=== PATIENT | male | born 1945 | race Caucasian/White ===

== ENCOUNTER → 2019-09-18 11:20 | Outpatient (CLI) | payer OTHER, SELFPAY ==
--- NOTE | ~2019-09-18 | US_ITS ---
EXAMINATION: US soft tissue upper back DATE: 09/18/2019 12:06 INDICATION: Left posterior superior thorax mass. TECHNIQUE: Multiple grayscale and Doppler ultrasound images of the left posterior superior thorax wer e obtained. COMPARISON: None FINDINGS: There is a 11.3 x 12.3 x 3.2 cm hypoechoic subcutaneous mass in the patient's area of shivam rn. The mass demonstrates echotexture similar to subcutaneous fat. IMPRESSION: 1. 12.3 cm subcutaneous mass in left posterior superior thorax, most likely a lipoma. Other benign or malignant masses could have the same appearance by ultrasound. Reviewed, dictated and finalized at location A. ND ETL DEVELOPER IMPRESSION: 1. 12.3 cm subcutaneous mass in left posterior superior thorax, most likely a l ipoma. Other benign or malignant masses could have the same appearance by ultra sound.
== END ==
PROVIDERS: PCP Family Medicine; Visit Provider Physician Assistant
DX: R22.2 Localized swelling, mass and lump, trunk (principal)
CPT/HCPCS: 76604

== ENCOUNTER 2020-01-12 00:29 | Outpatient (CLI) | payer OTHER, SELFPAY ==
[2020-01-12 18:39] LABS: SARS-CoV-2 RNA PCR Negative
== END 2020-01-12 00:30 | disposition home or self-care (01) ==
LOC: ANHCOVIDDT 00:29
PROVIDERS: PCP Family Medicine; Visit Provider Surgery Plastic and Reconstructive Surgery
DX: Z01.818 Encounter for other preprocedural examination (principal); Z11.59 Encounter for screening for other viral diseases; R22.2 Localized swelling, mass and lump, trunk
CPT/HCPCS: 87635; C9803; U0003

== ENCOUNTER 2020-01-12 11:24 | Outpatient (CLI) | payer OTHER, SELFPAY ==
--- NOTE | 2020-01-12 11:27 | ECG_ITS ---
Measurements Intervals [place] Rate: 67 P: [place]: 0 QRS: 52 QRSD: 104 T: 25 QT: 403 QTc: 427 Interpretive Statements ATRIAL FIBRILLATION BASELINE ARTIFACT- I, II, III, AVL, V3, V6 ABNORMAL ECG Electronically Signed On 01-12-2020 11:39:42 CDT by Zurdo Mobley D.O.
== END 2020-01-12 11:25 | disposition home or self-care (01) ==
LOC: ANHSURGERY 11:27
PROVIDERS: PCP Family Medicine; Visit Provider Surgery Plastic and Reconstructive Surgery
DX: I48.0 Paroxysmal atrial fibrillation (principal)
CPT/HCPCS: 87635; 93005; C9803; U0003

== ENCOUNTER 2020-01-14 00:58 | Day surgery (SDC) | payer OTHER, SELFPAY ==
[2020-01-11 12:23] VITALS: BMI 44.3
[2020-01-14] VITALS (7 sets, daily range): BP systolic 128–162; BP diastolic 66–87; PULSE 58–78; RESP 14–21; TEMP 36.2–36.7; O2SAT 97–100
[2020-01-14] MEDS: LACTATED RINGERS 1,000 ML 30 ML IV CONT (07:40)
--- NOTE | 2020-01-14 08:00 | WPDHPUPDATE1 ---
History and Physical Update Update Date/Time: 01/14/20 08:00 History and Physical has been reviewed, including an updated exam of the patient. There are NO changes in the patient's condition. Risks, benefits, and alternatives have been discussed and questions answered. Patient agrees to proceed with procedure.
--- NOTE | 2020-01-14 08:00 | PM.PROC ---
Procedure Note - Detailed Date of procedure: 01/14/20 Pre-op diagnosis: mass left upper back Post-op diagnosis: same Procedure performed: Excision mass left upper back 15cm Description of procedure: Patient was marked in the preoperative holding area with his verification. He was taken to the operating room placed on the operating room table. Anesthesia provided by anesthesiology and prepped and draped in a standard sterile fashion. Surgical time-out was taken. 1% lidocaine and 0.25% Marcaine with epinephrine was used anesthetize locally. A 15 blade used to make an incision over the mass. Dissection continued down to the it was completely removed and sent to pathology. I copiously irrigated with saline solution and verified strict hemostasis. I closed using 2-0 Vicryl deep followed by 3-0 Monocryl and running subcuticular 4-0 Monocryl and tissue glue. He was woken taken the PACU without difficulty. All instrument sponge counts were correct at the end of the case. Anesthesia: GLMA Surgeon: Robinson Garvey MD Estimated blood loss (mL): 3 Drains: No Packing: No Pathology: yes Complications: No immediate complications Condition: stable Disposition: PACU Findings: Poorly defined friable adipose tissue. Appears to be a lipoma.
--- NOTE | 2020-01-14 08:09 | WPDANESEPPF ---
Anes - Initial Pre Proc Eval Procedure: Operation Date: 01/14/20 08:30 Proposed Procedures p Excision Mass Left Upper Back - Robinson Garvey MD Date/Time: 01/14/20 08:09 Surgeon: Robinson Garvey MD Pre Op Diagnosis: mass left upper back Patient Data Age: 74 Gender: M Height: 1.75 m Weight: 138.6 kg Last Vital Signs Temp 36.7 C 01/14/20 06:30 Pulse 66 01/14/20 06:30 Resp 15 01/14/20 06:30 BP 128/83 01/14/20 06:30 Pulse Ox 98 01/14/20 06:30 Allergies Allergy/AdvReac Type Severity Reaction Status Date / Time No Known Allergies Allergy Verified 01/11/20 12:20 Home Medications Medication Instructions Recorded Confirmed Type rivaroxaban 20 mg tablet 20 mg PO DAILY 06/15/19 01/11/20 History Daily Multiple For Men 1 tab-cap PO DAILY 01/11/20 01/11/20 History docusate sodium [Dulcolax Stool 300 mg PO DAILY 01/11/20 01/11/20 History Softener (dss)] omega 1-xop-lpt-fish oil [Fish Oil] 1 cap PO DAILY 01/11/20 01/11/20 History atorvastatin 20 mg tablet 20 mg PO DAILY #90 tablet 01/13/20 01/14/20 Rx ECG: Date of Service: 01/12/20 Procedure(s): CA 12 lead EKG Accession Number(s): [id number] cc: ~ Measurements Intervals [place] Rate: 67 P: [place]: 0 QRS: 52 QRSD: 104 T: 25 QT: 403 QTc: 427 Interpretive Statements ATRIAL FIBRILLATION BASELINE ARTIFACT- I, II, III, AVL, V3, V6 ABNORMAL ECG Electronically Signed On 01-12-2020 11:39:42 CDT by Zurdo Mobley D.O. Dictated By: Zurdo Mobley DO 01/12/20 1154 Other Studies: normal stress test 2017 Patient hx anesthesia problems: none Family hx anesthesia problems: none PMFSH Past Medical History Medical History Bilateral cataracts Cardiovascular disease Chronic anticoagulation Diastolic dysfunction HTN (hypertension) Hyperlipidemia Hypertensive heart disease without heart failure Morbid (severe) obesity due to excess calories Neuropathy Neuropathy of both feet Osteoarthritis PAF (paroxysmal atrial fibrillation) Primary osteoarthritis, unspecified site Subcutaneous mass of back Surgical History Surgical History H/O cardiac radiofrequency ablation H/O cardiac radiofrequency ablation 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/2017 left knee 11/2017 Family History Family History Father Carcinoma of colon Mother Family history of renal cell carcinoma Social History Social History Smoking status: Never smoker Alcohol intake: current Gender identity (if verbalized by the patient): Male Anes - Eval Final PreProcedure Day of Procedure 01/14/20 08:09 Patient weight: morbidly obese Heart: regular rate and rhythm Lungs: clear to auscultation and normal air movement Airway: Mallampati scale class II Neurological: alert and oriented Last oral intake: >/= 8 hours ASA classification: III Emergent: no Anesthetic plan: proceed Anesthesia type and monitoring: general LMA and ETT Informed Consent: The patient's anesthetic plan and its attendant risks and benefits were discussed with the patient/family/POA. Questions were solicited and answers provided to the satisfaction of the patient/family/POA.
[2020-01-14] MEDS: ceFAZolin 3 GM/D5W 100 ML 100 ML IVPB (09:59)
[2020-01-14] MEDS: LIDO 1%/EPINEPHRINE 1:100,000 20 ML VIAL INFILTRATE (10:31)
--- NOTE | 2020-01-14 12:14 | SUR.PHASEII ---
1145 updated daughter on father conditon and possible hand picker time
== END 2020-01-14 12:35 | disposition home or self-care (01) ==
PROVIDERS: PCP Family Medicine; Visit Provider Surgery Plastic and Reconstructive Surgery
PROC: (CPT 21931; principal; 2020-01-14 08:30)
DX: D17.1 Benign lipomatous neoplasm of skin and subcutaneous tissue of trunk (principal); I48.0 Paroxysmal atrial fibrillation; I11.0 Hypertensive heart disease with heart failure; I50.30 Unspecified diastolic (congestive) heart failure; E78.5 Hyperlipidemia, unspecified; G62.9 Polyneuropathy, unspecified; M19.90 Unspecified osteoarthritis, unspecified site; Z79.01 Long term (current) use of anticoagulants; E66.01 Morbid (severe) obesity due to excess calories; Z68.41 Body mass index [BMI] 40.0-44.9, adult
CPT/HCPCS: 21931; 87635; 88304; 93005; C9803; J0330; J0690; J1100; J2250; J2405; J2704; J3010; J7120; U0003

== ENCOUNTER → 2020-09-24 01:07 | Outpatient (CLI) | payer OTHER, SELFPAY ==
[2020-09-24 19:49] LABS: SARS-CoV-2 RNA PCR Negative
== END ==
PROVIDERS: PCP Family Medicine; Visit Provider Internal Medicine Gastroenterology
DX: Z01.812 Encounter for preprocedural laboratory examination (principal); Z20.822 Contact with and (suspected) exposure to COVID-19
CPT/HCPCS: C9803; U0003; U0005

== ENCOUNTER 2020-09-28 01:11 | Day surgery (SDC) | payer OTHER, SELFPAY ==
[2020-09-14 14:49] VITALS: BMI 43.3
[2020-09-28 10:14] VITALS: BP 153/78; PULSE 76; RESP 18; TEMP 36.2; O2SAT 97; BMI 44.6
[2020-09-28] MEDS: LACTATED RINGERS 1,000 ML 150 ML IV CONT (10:30)
--- NOTE | 2020-09-28 10:39 | WPDANESEPPF ---
Anes - Initial Pre Proc Eval Procedure: Operation Date: 09/28/20 11:00 Proposed Procedures p Esophagogastroduodenoscopy - Magdiel Johnston MD Date/Time: 09/28/20 10:39 Surgeon: Magdiel Johnston MD Pre Op Diagnosis: dysphagia Patient Data Age: 75 Gender: M Height: 5 ft 10 in Weight: 141.3 kg Last Vital Signs Temp 36.2 C L 09/28/20 10:14 Pulse 76 09/28/20 10:14 Resp 18 09/28/20 10:14 BP 153/78 H 09/28/20 10:14 Pulse Ox 97 09/28/20 10:14 Allergies Allergy/AdvReac Type Severity Reaction Status Date / Time No Known Allergies Allergy Verified 09/28/20 10:09 Home Medications Medication Instructions Recorded Confirmed Type Daily Multiple For Men 1 tab-cap PO DAILY 01/11/20 09/14/20 History docusate sodium [Dulcolax Stool 300 mg PO DAILY 01/11/20 09/14/20 History Softener (dss)] omega 9-isx-bfw-fish oil [Fish Oil] 1 cap PO DAILY 01/11/20 09/14/20 History atorvastatin 20 mg tablet 20 mg PO DAILY #90 tablet 07/04/20 09/14/20 Rx rivaroxaban 20 mg tablet See Rx Instructions .ROUTE 07/27/20 09/28/20 Rx .COMPLEX #90 tablet Patient hx anesthesia problems: none Family hx anesthesia problems: none PMFSH Past Medical History Medical History Bilateral cataracts Cardiovascular disease Chronic anticoagulation Diastolic dysfunction HTN (hypertension) Hyperlipidemia Hypertensive heart disease without heart failure Morbid (severe) obesity due to excess calories Neuropathy Neuropathy of both feet Osteoarthritis PAF (paroxysmal atrial fibrillation) Paroxysmal A-fib Primary osteoarthritis, unspecified site Subcutaneous mass of back Surgical History Surgical History H/O cardiac radiofrequency ablation H/O cardiac radiofrequency ablation 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/2017 left knee 11/2017 Family History Family History Father Carcinoma of colon Mother Family history of renal cell carcinoma Social History Social History Smoking status: Never smoker Alcohol intake: current Substance use: never Substance use type: does not use Living arrangements: alone Gender identity (if verbalized by the patient): Male Sexual Orientation (if Verbalized by the Patient): Straight or Heterosexual Spiritual care concerns: No Anes - Eval Final PreProcedure Day of Procedure 09/28/20 10:39 Patient weight: morbidly obese Heart: regular rate and rhythm Lungs: clear to auscultation Airway: Mallampati scale class II Neurological: alert and oriented Last oral intake: >/= 8 hours ASA classification: III Emergent: no Anesthetic plan: proceed Anesthesia type and monitoring: general GIVS and standard monitoring Informed Consent: The patient's anesthetic plan and its attendant risks and benefits were discussed with the patient/family/POA. Questions were solicited and answers provided to the satisfaction of the patient/family/POA.
--- NOTE | 2020-09-28 11:12 | PM.HPGS ---
History of Present Illness History of Present Illness Consent: Risks, benefits, and alternatives have been discussed and questions answered. Patient agrees to proceed with procedure. Chief complaint: dysphagia Narrative: Marty Diaz is a 75 year old male with intermittent dysphagia to both solids and liquids (sometimes getting stuck in throat), he is not taking ppi. First EGD. Review of Systems Constitutional: Constitutional: Denies headache(s) and Denies weakness Eyes: Eyes: Denies blurry vision ENT: Reports Normal hearing present, Denies headache(s) and Denies neck pain Cardiovascular: Cardiovascular: Denies chest pain and Denies dyspnea Respiratory: Respiratory: Denies dyspnea Gastrointestinal: Gastrointestinal: Reports no additional gastrointestinal complaints Genitourinary: Genitourinary: Denies dysuria Musculoskeletal: Musculoskeletal: Denies neck pain Integumentary/Breasts: Skin/Breast: Denies dry skin Neurologic: Reports Normal hearing present, Denies headache(s) and Denies weakness Psychiatric: Psychiatric: Denies anxiety Endocrine: Endocrine: Denies change in body appearance Hematologic/Lymphatic: Hematologic/Lymphatic: Denies easy bleeding Allergic/Immunologic: Allergic/Immunologic: Denies urticaria PMFSH Past Medical History Medical History Bilateral cataracts Cardiovascular disease Chronic anticoagulation Diastolic dysfunction HTN (hypertension) Hyperlipidemia Hypertensive heart disease without heart failure Morbid (severe) obesity due to excess calories Neuropathy Neuropathy of both feet Osteoarthritis PAF (paroxysmal atrial fibrillation) Paroxysmal A-fib Primary osteoarthritis, unspecified site Subcutaneous mass of back Surgical History Surgical History H/O cardiac radiofrequency ablation H/O cardiac radiofrequency ablation 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/2017 left knee 11/2017 Family History Family History Father Carcinoma of colon Mother Family history of renal cell carcinoma Social History Social History Smoking status: Never smoker Alcohol intake: current Substance use: never Substance use type: does not use Living arrangements: alone Gender identity (if verbalized by the patient): Male Sexual Orientation (if Verbalized by the Patient): Straight or Heterosexual Spiritual care concerns: No Meds Home Medications and Allergies Home Medications Medication Instructions Recorded Confirmed Type Daily Multiple For Men 1 tab-cap PO DAILY 01/11/20 09/14/20 History docusate sodium [Dulcolax Stool 300 mg PO DAILY 01/11/20 09/14/20 History Softener (dss)] omega 8-nqa-jaw-fish oil [Fish Oil] 1 cap PO DAILY 01/11/20 09/14/20 History atorvastatin 20 mg tablet 20 mg PO DAILY #90 tablet 07/04/20 09/14/20 Rx rivaroxaban 20 mg tablet See Rx Instructions .ROUTE 07/27/20 09/28/20 Rx .COMPLEX #90 tablet Allergies Allergy/AdvReac Type Severity Reaction Status Date / Time No Known Allergies Allergy Verified 09/28/20 10:09 Vital Signs Vital Signs - 24 hr 09/28/20 10:14 Temperature 97.1 F L Pulse Rate 76 Respiratory Rate 18 Blood Pressure 153/78 H Pulse Oximetry 97 Exam Const: General: comfortable and no acute distress HENMT: General nose exam: Normal nares present Eyes: General: appearance normal, both eyes and all related structures Neck: Neck: no JVD Resp: Auscultation: clear to auscultation bilaterally Cardio: Rate: regular rate Rhythm: regular rhythm GI: Inspection: non-distended GI Palp: Yes Soft to palpation Skin: General skin exam: normal color Neuro: General: gait normal Speech: normal speech Extrem: General: normal to inspection Psych: Mental Status: mental status grossly normal A
[2020-09-28] MEDS: BENZOCAINE (*SP) 60 ML SPRAY CAN (HURRICAINE) 1 SPRAY MUCOUS MEM (11:17)
[2020-09-28 11:27] VITALS: BP 113/66; PULSE 68; RESP 18; O2SAT 96
[2020-09-28 11:37] VITALS: BP 124/84; PULSE 60; RESP 20; O2SAT 98
[2020-09-28 11:47] VITALS: BP 133/82; PULSE 58; RESP 20; O2SAT 99
--- NOTE | 2020-09-28 12:30 | SUR.PHASEII ---
1205: PT GIVEN DISCHARGE INSTRUCTIONS AND STATES UNDERSTANDING. 1210: PT PLACED INTO SON FRANCI'S CAR FOR TRANSPORT HOME AND SON FRANCI SIGNED PAPERWORK. CALL RECEIVED SHORTLY AFTER FROM WAITING ROOM STAFF THAT THEY OBSERVED PT GETTING OUT OF SON'S CAR AND INTO HIS CAR, THEN PROCEEDED TO DRIVE AWAY.
== END 2020-09-28 12:05 | disposition home or self-care (01) ==
PROVIDERS: PCP Family Medicine; Visit Provider Internal Medicine Gastroenterology
PROC: 0DJ08ZZ Inspection of Upper Intestinal Tract, Via Natural or Artificial Opening Endoscopic (ICD-10-PCS; CPT 43235; principal; 2020-09-28 11:00)
DX: R13.10 Dysphagia, unspecified (principal); K20.80 Other esophagitis without bleeding; I11.9 Hypertensive heart disease without heart failure; E78.5 Hyperlipidemia, unspecified; I48.0 Paroxysmal atrial fibrillation; G62.9 Polyneuropathy, unspecified; Z79.01 Long term (current) use of anticoagulants; E66.01 Morbid (severe) obesity due to excess calories; Z68.41 Body mass index [BMI] 40.0-44.9, adult
CPT/HCPCS: 43248; 88305; C9803; J2704; J7120; U0003; U0005

== ENCOUNTER 2021-05-17 00:36 | Day surgery (SDC) | payer OTHER, SELFPAY ==
[2021-05-03 13:28] VITALS: BMI 44.2
--- NOTE | 2021-05-16 13:00 | WPDANESEPPF ---
Anes - Initial Pre Proc Eval Procedure: Operation Date: 05/17/21 09:00 Proposed Procedures p Screening Colonoscopy - Mateo Paniagua MD Date/Time: 05/16/21 13:00 Surgeon: Mateo Paniagua MD Pre Op Diagnosis: neoplasm screening Patient Data Age: 76 Gender: M Height: 1.75 m Weight: 136 kg Allergies Allergy/AdvReac Type Severity Reaction Status Date / Time No Known Allergies Allergy Verified 05/17/21 08:09 Home Medications Medication Instructions Recorded Confirmed Type Daily Multiple For Men 1 tab-cap PO DAILY 01/11/20 05/17/21 History docusate sodium [Dulcolax Stool 100 mg PO DAILY 01/11/20 05/17/21 History Softener (dss)] atorvastatin 20 mg tablet 20 mg PO DAILY #90 tablet 01/06/21 05/17/21 Rx rivaroxaban 20 mg tablet 20 mg PO DAILY #90 tablet 05/16/21 05/17/21 Rx Patient hx anesthesia problems: none Family hx anesthesia problems: none Results Review: All pre-operative results and documents have been reviewed as part of the pre-operative evaluation. [facility] Past Medical History Medical History (Updated 05/16/21 @ 13:01 by Scott Belcher DO) Bilateral cataracts Cardiovascular disease Chronic anticoagulation Diastolic dysfunction Dysphagia HTN (hypertension) Hyperlipidemia Hypertensive heart disease without heart failure Morbid (severe) obesity due to excess calories Neuropathy Neuropathy of both feet JACKI (obstructive sleep apnea) Osteoarthritis PAF (paroxysmal atrial fibrillation) Paroxysmal A-fib Primary osteoarthritis, unspecified site Subcutaneous mass of back Surgical History Surgical History H/O cardiac radiofrequency ablation H/O cardiac radiofrequency ablation 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/2017 left knee 11/2017 Family History Family History Father Carcinoma of colon Mother Family history of renal cell carcinoma Social History Social History Smoking status: Never smoker Alcohol intake: current Drinks per week: 2 Substance use: never Substance use type: does not use Living arrangements: alone Gender identity (if verbalized by the patient): Male Sexual Orientation (if Verbalized by the Patient): Straight or Heterosexual Spiritual care concerns: No Anes - Eval Final PreProcedure Day of Procedure 05/16/21 13:00 Patient weight: morbidly obese Heart: regular rate and rhythm Lungs: clear to auscultation and normal air movement Airway: Mallampati scale class II Neurological: alert and oriented Last oral intake: >/= 8 hours ASA classification: III Emergent: no Anesthetic plan: proceed Anesthesia type and monitoring: general GIVS and standard monitoring Results Review: All pre-operative results and documents have been reviewed as part of the pre-operative evaluation. Informed Consent: The patient's anesthetic plan and its attendant risks and benefits were discussed with the patient/family/POA. Questions were solicited and answers provided to the satisfaction of the patient/family/POA.
[2021-05-17 08:13] VITALS: BP 151/84; PULSE 72; RESP 20; TEMP 35.7; O2SAT 97
[2021-05-17] MEDS: LACTATED RINGERS 1,000 ML 150 ML IV CONT (08:20)
--- NOTE | 2021-05-17 08:25 | WPDGICN ---
Assessment and Plan Assessment and plan (1) Family history of colon cancer in father: Code(s): Z80.0 - Family history of malignant neoplasm of digestive organs Status: Acute Assessment and Plan: Patient's father had colon cancer for this reason follow-up colonoscopies has been advised at 5 year intervals. Further recommendations will be given after endoscopy. GI Consult Note Consult date/time: 05/17/21 08:25 HPI: Marty Diaz is a 76 year old male Presents for screening colonoscopy. His family history is significant that his father had colon cancer. Patient has had intermittent colonoscopy since age 46. He denies ever having had polyps. Most recent colonoscopy 5 years ago in 2016. Patient has a history of esophageal dilatation in September of 2020 and has been swallowing well since that. 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 He denies any ongoing heartburn. Patient denies any blood in his stools has had stable weight. Review of Systems Review of Systems: All systems reviewed & are unremarkable except as noted in HPI and below PMFSH Past Medical History Medical History (Updated 05/17/21 @ 08:27 by Mateo Paniagua MD) Bilateral cataracts Cardiovascular disease Chronic anticoagulation Diastolic dysfunction Dysphagia HTN (hypertension) Hyperlipidemia Hypertensive heart disease without heart failure Morbid (severe) obesity due to excess calories Neuropathy Neuropathy of both feet JACKI (obstructive sleep apnea) Osteoarthritis PAF (paroxysmal atrial fibrillation) Paroxysmal A-fib Primary osteoarthritis, unspecified site Subcutaneous mass of back Surgical History Surgical History H/O cardiac radiofrequency ablation H/O cardiac radiofrequency ablation 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/2017 left knee 11/2017 Family History Family History Father Carcinoma of colon Mother Family history of renal cell carcinoma Social History Social History Smoking status: Never smoker Alcohol intake: current Drinks per week: 2 Substance use: never Substance use type: does not use Living arrangements: alone Gender identity (if verbalized by the patient): Male Sexual Orientation (if Verbalized by the Patient): Straight or Heterosexual Spiritual care concerns: No Meds Home Medications and Allergies Home Medications Medication Instructions Recorded Confirmed Type Daily Multiple For Men 1 tab-cap PO DAILY 01/11/20 05/17/21 History docusate sodium [Dulcolax Stool 100 mg PO DAILY 01/11/20 05/17/21 History Softener (dss)] atorvastatin 20 mg tablet 20 mg PO DAILY #90 tablet 01/06/21 05/17/21 Rx rivaroxaban 20 mg tablet 20 mg PO DAILY #90 tablet 05/16/21 05/17/21 Rx Allergies Allergy/AdvReac Type Severity Reaction Status Date / Time No Known Allergies Allergy Verified 05/17/21 08:09 Vital Signs Vital Signs - 24 hr 05/17/21 08:13 Temperature 96.3 F L Pulse Rate 72 Respiratory Rate 20 Blood Pressure 151/84 H Pulse Oximetry 97 Exam Narrative: Physical exam reveals patient to be alert. Vital signs stable. HEENT exam is unremarkable. Patient is anicteric. Lungs are clear to auscultation and percussion. Heart is without murmur or extra sounds. Abdominal exam bowel sounds are present soft nontender with no organomegaly. Digital external rectal exam is normal.
[2021-05-17 09:24] VITALS: BP 106/67; PULSE 72; RESP 21; O2SAT 97
[2021-05-17 09:34] VITALS: BP 124/66; PULSE 70; RESP 22; O2SAT 97
[2021-05-17 09:44] VITALS: BP 122/81; PULSE 68; RESP 18; O2SAT 97
--- NOTE | 2021-05-17 10:03 | SUR.PHASEII ---
Pt. to restart Xaralto tomorrow as directed by Dr. Paniagua
== END 2021-05-17 10:14 | disposition home or self-care (01) ==
PROVIDERS: PCP Family Medicine; Visit Provider Internal Medicine Gastroenterology
PROC: 0DJD8ZZ Inspection of Lower Intestinal Tract, Via Natural or Artificial Opening Endoscopic (ICD-10-PCS; CPT 45378; principal; 2021-05-17 09:00)
DX: Z12.11 Encounter for screening for malignant neoplasm of colon (principal); K63.5 Polyp of colon; Z80.0 Family history of malignant neoplasm of digestive organs; I11.9 Hypertensive heart disease without heart failure; I48.0 Paroxysmal atrial fibrillation; E78.5 Hyperlipidemia, unspecified; G62.9 Polyneuropathy, unspecified; G47.33 Obstructive sleep apnea (adult) (pediatric); H26.9 Unspecified cataract; E66.01 Morbid (severe) obesity due to excess calories; Z68.41 Body mass index [BMI] 40.0-44.9, adult; Z79.01 Long term (current) use of anticoagulants
CPT/HCPCS: 45385; 88305; J2704; J7120

== ENCOUNTER → 2022-10-11 12:52 | Outpatient (CLI) | payer OTHER, SELFPAY ==
--- NOTE | ~2022-10-11 | XR_ITS ---
Lumbosacral Spine: AP and lateral views Clinical History: Pain COMPARISON: 09/21/2016 Findings: The normal lordotic curve is maintained. No fracture or subluxation seen. There is mild deg enerative disc change at L4-L5. There is probable minimal facet joint degenerative change of the lumb ar spine. The sacroiliac joints are normally outlined. Atherosclerotic calcifications of the aorta ar e present. Impression: Mild degenerative spondylosis, as above. Reviewed, dictated and finalized at location M. OLOGY ENGINEER Impression: Mild degenerative spondylosis, as above.
== END ==
PROVIDERS: PCP Family Medicine; Visit Provider Physician Assistant
DX: M54.9 Dorsalgia, unspecified (principal)
CPT/HCPCS: 72100

== ENCOUNTER 2025-01-28 07:34 | Outpatient (CLI) | payer OTHER, SELFPAY ==
--- NOTE | ~2025-01-28 | XR_ITS ---
Right Shoulder Technique: AP and axillary views were obtained. Clinical History: Pain Findings: No fracture or dislocation is seen. Osseous alignment is anatomic. The glenohumeral joint i s intact. Mild AC joint degenerative change present. Soft tissues are unremarkable. Impression: Mild AC joint degenerative change. Reviewed, dictated and finalized at location . Impression: Mild AC joint degenerative change.
--- NOTE | ~2025-01-28 | XR_ITS ---
Left Shoulder Technique: AP and axillary views were obtained. Clinical History: Pain Findings: No fracture or dislocation is seen. Osseous alignment is anatomic. The glenohumeral and acr omioclavicular joints demonstrate mild degenerative change. Soft tissues are unremarkable. Impression: Mild degenerative changes, as above. Reviewed, dictated and finalized at location . Impression: Mild degenerative changes, as above.
--- OUTSIDE RECORDS SUMMARY | 2025-01-28 07:39 | XMS_ITS | Clinical Summary ---
Author Organization [facility] Address [address] [place] [id number] Care Team Providers Care Clinical Staff Rn Name Role Phone Man Flores MD Primary Care Provider [phone] Social History Tobacco Use Types Packs/Day Years Used Date Smoking Tobacco: Never Assessed Sex and Gender Information Value Date Recorded Sex Assigned at Not on file Legal Sex Male 4:05 PM CDT Gender Identity Not on file Sexual Orientation Not on file Plan of Treatment Health Maintenance Due Date Last Done Comments Hepatitis C 02/09/1963 DTaP, Tdap and Td Vaccines ( 1 - Tdap) 1965 Pneumococcal Vaccine: 50+ Ye ars (1 of 1 - PCV) 02/09/1996 Zoster Vaccines (1 of 2) 02/09/1996 Annual Medicare Wellness Visit 2011 RSV Immunization or 60+ Years (1 - 1-dose 75+ series) 2021 COVID-19 Vaccine ( - 2023-2 5 season) 2024 Meningococcal B Vaccine Aged Out No l onger eligible based on patient's age to complete this topic Meningococcal Vaccine Aged Out No hannah brunilda eligible based on patient's age to complete this topic RSV Immunizations Under 20 Months Aged Out No longer eligible based on patient's age to complete this topic Insurance [employer] Care Teams Clinical Staff Rn Relationship Specialty Start Date End Date Man Flores MD [address] [place] [address] PCP - General FAMILY PRACTICE 07/15/19
--- OUTSIDE RECORDS SUMMARY | 2025-01-28 07:39 | XMS_ITS ---
Author Name GERMAINE GOTTLIEB M.D. Address [address] [place] [address] Phone [phone] Organization [facility] ([facility]) Care Team Providers Care Structural Iron Worker Name Role Phone GERMAINE GOTTLIEB Unavailable [phone] Man Flores Unavailable [phone] Reason for Referral Not Available Allergies, adverse reactions, alerts No known allergies Problem List Problem Status Onset Date Resolved Date Synopsis Morbid (severe) obesity due to excess calories Active 2024-11-29 N/A N/A Paroxysmal atrial fibrillation Active 2024-11-29 N/A N/A Hypertensive heart disease w ithout heart failure Active 2024-11-29 N/A N/A Mixed hyperlipidemia Active 2024-11-29 N/A N/A Social History Sex Male Functional Status No Information Mental Status No Information Assessments Not Available Plan of Care Not Available
--- OUTSIDE RECORDS SUMMARY | 2025-01-28 07:39 | XMS_ITS | Referral Summary ---
Author Organization [facility] [address] Address [address] [place] [address] Care Team Providers Care General Counsel Name Role Phone Man Flores MD Primary Care Provider Allergies No known active allergies Medications atorvastatin (LIPITOR) 20 mg tablet take 1 tablet by oral route every day 0 0 01/25/2015 Active rivaroxaban (XARELTO) tablet TAKE ONE TABLET BY MOUTH ONCE DAILY WITH EVENING MEAL TO PREVENT BLOOD CLOTS AND STROKE 30 2 01/25/2015 Active chlorthalidone (HYGROTON) 25 mg tablet TAKE 12.5 MG (1/2 X 25 MG) ORALLY DAILY FOR 90 DAYS 09/22/2024 Active Active Problems Problem Noted Date Diagnosed Date Hypertensive heart disease without congestive he art failure 01/25/2015 Overview (11/16/2016): Hypertensive heart disease without CHF Morbid obesity 01/25/2015 Overview (11/16/2016): Morbid obesity History of atrial flutter 01/25/2015 Overview (11/16/2016): H/O atrial flutter Hyperlipidemia 01/25/2015 Overview (11/16/2016): Hyperlipidemia Paroxysmal atrial fibrillation 01/25/2015 Overview (11/16/2016): Paroxysmal atrial fibrillation Social History Tobacco Use Types Packs/Day Years Used Date Smoking Tobacco: Never Tobacco Cessation:Counseling Given: No Alcohol Use Standard Drinks/Week Comments Yes 0 (1 standard drink = 0.6 oz pur e alcohol) Sex and Gender Information Value Date Recorded Sex Assigned at Not on file 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 OPTIONS PPO [facility] CHOICE PLUS [facility] CHO[facility] PLUS Care Teams General Counsel Relationship Specialty Start Date End Date Man Flores MD [address] [facility] [address] [place] [address] PCP - General 09/05/15
--- OUTSIDE RECORDS SUMMARY | 2025-01-28 07:39 | XMS_ITS | Clinical Summary ---
Author Organization [facility] [address] Address [address] [place] [address] Care Team Providers Care Active Directory Specialist Name Role Phone Man Flores MD Primary [...] fibrillation 01/25/2015 Overview (11/16/2016): Paroxysmal atrial fibrillation Surgical History Surgery Date Site/Laterality Comments TONSILLECTOMY Tonsillectomy Medical History Medical History Date Comments Hx Other Medical Sleep Apnea, CP AP Hx Other Medical Diverticulosis Hx Other Medical Knee surgery; C omments: ELU 02/19/2015 - Family History Medical History Relation Name Comments Other Brother 2 Ulcerated Splee n; Colon cancer Father 2 Cancer, colon; Other Mother 2 Renal Cell Canc er; ELU 02/19/2015 -Pt says of loneliness Relation Name Status Comments Brother 1 Alive Brother 2 Father 1 Alive Father 2 Mother 1 Alive Mother 2 Social History Tobacco Use Types Packs/Day Years Used Date Smoking Tobacco: Never Tobacco Cessation:Counseling Given: No Alcohol Use Standard Drinks/Week Comments Yes 0 (1 standard drink = 0.6 oz pur e alcohol) Sex and Gender Information Value Date Recorded Sex Assigned at Not on file 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 Gender Identity Not on file Sexual Orientation Not on file Obstetrics History Last Filed Vital Signs Vital Sign Reading Time Taken Comments Blood Pressure 167/77 09/28/2024 1:18 PM FOUNDATION MAKER Pulse 101 09/28/2024 1:18 PM FOUNDATION MAKER Temperature - - Respiratory Rate - - Oxygen Saturation 97% 11/02/2022 3:24 PM CDT Inhaled Oxygen Concentration - - Weight 135.2 kg (298 lb) 09/28/2024 1:18 PM FOUNDATION MAKER Height 175.3 cm (5' 9) 09/28/2024 1:18 PM FOUNDATION MAKER Body Mass Index 44.01 09/28/2024 1:18 PM FOUNDATION MAKER Plan of Treatment Health Maintenance Due Date Last Done Comments Depression Screening 1945 Fall Risk Assessment 1945 Hepatitis C Screening 1945 Hepatitis B Screening 02/09/1964 Zoster Vaccine (1 of 2) 02/09/1996 Well Visit 65+ 2011 Covid-19 Vaccine (2023-2 5 season) 2024 05/10/2022, 12/01/2021, 05/24/2021, Additional history exists Influenza Vaccine (Season Ended) 2025 05/10/2022, 05/24/2021, 06/06/2019, Additional history exists DTaP/Tdap/Td Vaccine (2 - Td or Tdap) 03/29/2027 03/29/2017 Pneumococcal vaccine 65+ Completed 12/01/2021 Insurance [facility] OPTIONS PPO [facility] H[facility]/PPO Address: [address] [address] [place] [address] [facility] CHOICE PLUS [facility] HMO/PPO Address: [address] [address] [place] [address] [facility] Member Subscriber Plan / Payer (Ef fective 2016-Present) Name:Marty Diaz Relation to Subscriber:Self Name:Emily Marty Rc Payer ID:[id number] (NAIC) Type:MEDICARE RISK OTHER Address: [address] CHOICE PLUS [facility] HMO/PPO Address: [address] [address] [place] [phone] Care Teams Active Directory Specialist Relationship Specialty Start Date End Date Man Flores MD [address] [facility] [address] [place] [address] PCP - General 09/05/15
== END 2025-01-28 07:35 | disposition home or self-care (01) ==
PROVIDERS: PCP Family Medicine; Visit Provider Physician Assistant
DX: M19.012 Primary osteoarthritis, left shoulder (principal); M19.011 Primary osteoarthritis, right shoulder
CPT/HCPCS: 73030

== ENCOUNTER 2025-07-02 09:17 | Emergency (ER) | payer OTHER, SELFPAY ==
--- NOTE | ~2025-07-02 | XR_ITS ---
EXAMINATION: XR finger 4th RT min 2V, 07/02/2025 9:59 DIETETIC TECH HISTORY: RT 4th digit, distal pain, crush injury today COMPARISON: No comparisons available. Findings: Nondisplaced fracture distal aspect of the distal phalanx. Moderate degenerative changes. Soft tissues unremarkable. Impression: Fractures detailed above Reviewed, dictated and finalized at location P. ETIC TECH Impression: Fractures detailed above
[2025-07-02 09:42] VITALS: BP 147/72; PULSE 61; RESP 18; TEMP 36.4; O2SAT 96
--- NOTE | 2025-07-02 09:45 | ED.WOUNDLAC ---
HPI - Wound/Laceration General Chief Complaint: Wound/Laceration Stated Complaint: Right Hand Finger laceration Time Seen by Provider: 07/02/25 09:50 Source: patient, RN notes reviewed and old records reviewed Mode of arrival: ambulatory Limitations: no limitations History of Present Illness HPI narrative: 80-year-old male presents to the [facility] with 4th finger right hand pain after a window closed on his finger. Patient is on Xarelto. Bleeding is controlled. Last Tdap was 2016. Has a small cut to the nail bed, distal nail is missing. Occurred approximately 830 this morning Treatments prior to arrival: bandage Related Data Allergies Allergy/AdvReac Type Severity Reaction Status Date / Time amoxicillin (From Augmentin) Allergy Mild Rash Verified 07/02/25 09:58 clavulanic acid (From Allergy Mild Rash Verified 07/02/25 09:58 Augmentin) chlorthalidone AdvReac Dizziness Verified 07/02/25 09:58 Review of Systems Review of Systems: All systems reviewed & are unremarkable except as noted in HPI and below Constitutional: Constitutional: Reports no additional constitutional complaints Cardiovascular: Cardiovascular: Reports no additional cardiovascular complaints, Denies chest pain and Denies dyspnea Respiratory: Respiratory: Reports no additional respiratory complaints, Denies chest congestion, Denies cough and Denies dyspnea Musculoskeletal: Musculoskeletal: Reports as per HPI Integumentary/Breasts: Skin/Breast: Reports as per HPI PMFSH Past Medical History Medical History Dysphagia JACKI (obstructive sleep apnea) Paroxysmal A-fib Cardiovascular disease Chronic anticoagulation Diastolic dysfunction Hyperlipidemia Hypertensive heart disease without heart failure Morbid (severe) obesity due to excess calories Neuropathy of both feet PAF (paroxysmal atrial fibrillation) Primary osteoarthritis, unspecified site Subcutaneous mass of back Osteoarthritis Neuropathy HTN (hypertension) Bilateral cataracts Surgical History Surgical History H/O cardiac radiofrequency ablation 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/2017 left knee 11/2017 H/O cardiac radiofrequency ablation Family History Family History Father Carcinoma of colon Mother Family history of renal cell carcinoma Social History Social History Social History: Smoking status: Never smoker Second hand tobacco smoke exposure: No Alcohol intake: current Drinks per week: 2 Substance use: never Substance use type: does not use Lack of Transportation: No Lack of Food: Never True Current Housing: I Have Housing Concerned About Future Housing: No Difficulty Paying Gas/Electric Bills: No Difficulty Paying for Meds: No Currently Unemployed: No Education: Master's Degree or Higher Difficulty w/ Childcare or Family Care: No Living arrangements: alone Occupation/Education: occupation Gender identity (if verbalized by the patient): Male Sexual Orientation (if Verbalized by the Patient): Straight or Heterosexual Spiritual care concerns: No Comments At the time of my signature, I reviewed and agree with the nursing past medical, surgical, social, and family history. There is no relevant family history pertinent to the patient complaint. Exam Const: General: cooperative, healthy appearing, comfortable, no acute distress, well developed, alert and well nourished Nutritional Appearance: well nourished and obese Orientation/consciousness: patient oriented x3 Limitations: no limitations HENMT: Head: normal to inspection Eyes: General: appearance normal, both eyes and all related structures Alignment and Position: alignment normal Neck: Neck: normal visual inspection, full ROM, no lymphadenopathy and no meningeal signs Chest: Chest palpation & inspection: normal inspection of the chest Resp: Effort & Inspection: normal respiratory effort and able to speak in complete sentences Cardio: Rate: regular rate Skin: General skin exam: normal color and no rashes or lesions noted Trauma: other Neuro: General: patient oriented x3, gait normal, moves all extremities and no meningeal signs Cognition (Neuro): normal cognition Speech: normal speech Gait exam (Neuro): Normal gait present Extrem: General: normal to inspection, full ROM, capillary refill normal and normal gait Hand/finger images:  1. cut to the nail bed, distal nail no longer intact, missing. Right 4th finger Psych: Appearance: grossly normal and well kempt Mental Status: mental status grossly normal Speech and movement: Normal speech and movement present and Clear speech present Affect: normal affect Attitude: cooperative Course Course Level of Care: Express Care Visit Vital Signs Vital signs: Vital Signs Temperature 97.5 F L 07/02/25 09:42 Pulse Rate 61 07/02/25 09:42 Respiratory Rate 18 07/02/25 09:42 Blood Pressure 147/72 H 07/02/25 09:42 Pulse Oximetry 96 07/02/25 09:42 Oxygen Delivery Room Air 07/02/25 09:42 Temperature 97.5 F L 07/02/25 09:42 Pulse Rate 61 07/02/25 09:42 Respiratory Rate 18 07/02/25 09:42 Blood Pressure 147/72 H 07/02/25 09:42 Pulse Oximetry 96 07/02/25 09:42 Oxygen Delivery Room Air 07/02/25 09:42 Reviewed MDM - Wound/Laceration MDM Narrative Medical decision making narrative: patient sitting in exam room. Patient is nontoxic, vitals stable. Patient with a crush injury to the 4th finger right hand. avulsion of the distal half of the nail. No longer intact. Swelling noted. Abrasion, discussed tacking together a side which he is declining at this time. X-ray showed nondisplaced fracture. Covering with Keflex, updated tetanus. Patient is appropriate for outpatient treatment with close follow-up, Dr. Shankar Discharge instructions reviewed with patient, as well as provided in writing per nursing staff. The instructions also include specific and strict return/GO TO THE ER as well as f/u information. All questions have been answered, and the patient deny any further questions with discharge and discharge plan. Some parts of this dictation were generated by voice recognition software and may contain typographical and/or grammatical inaccuracies. Differential Diagnosis Differential diagnosis: Likely laceration, abrasion and avulsion of skin Imaging Data Radiologist's impression: Man Flores MD; Kathleen Herman APRN~ EXAMINATION: XR finger 4th RT min 2V, 07/02/2025 9:59 AUDIO VISUAL SPECIALIST HISTORY: RT 4th digit, distal pain, crush injury today COMPARISON: No comparisons available. Findings: Nondisplaced fracture distal aspect of the distal phalanx. Moderate degenerative changes. Soft tissues unremarkable. Impression: Fractures detailed above Critical Care Time Critical Care Time Critical Care Time: No Discharge Plan Discharge Clinical Impression: Vaccine for diphtheria-tetanus Open finger fracture Qualifiers: Encounter type: initial encounter Finger: ring finger Phalanx: distal Fracture alignment: nondisplaced Laterality: right Qualified Code(s): S62.664B - Nondisplaced fracture of distal phalanx of right ring finger, initial encounter for open fracture Patient Disposition: Home Condition: Stable Instructions: Antibiotic Form, Finger Fracture (ED) Additional Instructions: please follow-up with Dr. Shankar on Saturday or Saturday. The nail will take several months to grow back. Rest, ice and elevate. Take Tylenol as needed for pain. Take antibiotic as prescribed removed the dressing and change it tomorrow night. Keep the area covered at all times until cleared by Dr. Shankar follow-up with primary care provider for worsening symptoms please go directly to the emergency room Patient Language: Japanese Prescriptions: New cephalexin 500 mg capsule 500 mg PO QID 7 Days Qty: 28 0RF No Action atorvastatin 20 mg tablet 20 mg PO DAILY Qty: 90 2RF Xarelto 20 mg tablet See Rx Instructions .ROUTE .COMPLEX Qty: 90 1RF Dose Instruction: TAKE 1 TABLET BY MOUTH EVERY DAY WITH AN EVENING MEAL Rx Instructions: TAKE 1 TABLET BY MOUTH EVERY DAY WITH AN EVENING MEAL losartan 50 mg tablet 50 mg PO DAILY Qty: 90 2RF Follow-up/Referrals: Ramirez Shankar MD [Physician, Plastic Surgery] - 3 Days Clinical Impression: Vaccine for diphtheria-tetanus; Open finger fracture Man Flores MD [Primary Care Provider, Family Practice] Clinical Impression: Vaccine for diphtheria-tetanus; Open finger fracture Stand Alone Forms: Work/School Release IP Time of Disposition: 10:54
[2025-07-02] MEDS: TETANUS/DIPHTHERIA TOXOIDS ADSORB 0.5 ML SYRINGE (*BKC) IM (10:10)
--- NOTE | 2025-07-02 10:54 | PC.NURSE ---
Lidocaine 1% not given, pt refused and provider Kathleen Herman NP states not needed anymore.
== END 2025-07-02 11:00 | disposition home or self-care (01) ==
PROVIDERS: Emergency Provider Nurse Practitioner; PCP Family Medicine
DX: S62.664B Nondisplaced fracture of distal phalanx of right ring finger, initial encounter for open fracture (principal); W20.8XXA Other cause of strike by thrown, projected or falling object, initial encounter; Z23 Encounter for immunization; I48.0 Paroxysmal atrial fibrillation; I11.9 Hypertensive heart disease without heart failure; E66.01 Morbid (severe) obesity due to excess calories; Z68.41 Body mass index [BMI] 40.0-44.9, adult; G62.9 Polyneuropathy, unspecified; M19.90 Unspecified osteoarthritis, unspecified site; Z96.653 Presence of artificial knee joint, bilateral; Z79.01 Long term (current) use of anticoagulants
CPT/HCPCS: 73140; 90471; 90714; 99213; G0463